=== PATIENT | female | born 1975 | race Caucasian/White ===

== ENCOUNTER 2024-09-26 09:13 | Emergency (ER) | payer SELFPAY ==
[2024-09-26 09:19] VITALS: BP 155/97
[2024-09-26 10:12] VITALS: BP 139/83
[2024-09-26] MEDS: MOTRIN 600 MG PO (10:47)
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
== END 2024-09-26 11:16 | disposition home or self-care (01) ==
LOC: EMR 09:13
PROVIDERS: EMERGENCY PHYSICIAN Emergency Medicine; FAMILY PHYSICIAN Nurse Practitioner Primary Care
DX: Z04.1 Encounter for examination and observation following transport accident (principal)
CPT/HCPCS: 99282